=== PATIENT | male | born 1975 | race Caucasian/White ===

== ENCOUNTER → 2018-02-13 | Outpatient (CLI) | payer OTHER | END | disposition home or self-care (01) | LOC: MRI 09:15 | DX: S92.102D Unspecified fracture of left talus, subsequent encounter for fracture with routine healing (principal); S93.402D Sprain of unspecified ligament of left ankle, subsequent encounter; M79.89 Other specified soft tissue disorders; X58.XXXD Exposure to other specified factors, subsequent encounter | CPT/HCPCS: 73721 ==